=== PATIENT | male | born 1960 | race Caucasian/White ===

== ENCOUNTER 2025-08-10 20:09 | Emergency (ER) | payer MEDICARE ==
[~2025-08-10] VITALS: Ht 165.1 cm; Wt 81.6 kg
[2025-08-10 20:10] VITALS: TEMP 98.5
[2025-08-10] MEDS ORDERED: Vancomycin IV 1 GM in SODIUM CHLORIDE 0.9% 250ML 250 ML IV ONE (20:45)
[2025-08-10 21:13] LABS: BASOPHILS % 0.2 % (0.0-1.0); EOSINOPHILS % 0.1 % (0.0-6.0); LYMPHOCYTES % 2.2 % (18.0-39.1); MONOCYTES % 5.4 % (4.4-11.3); NEUTROPHILS % 90.2 % (38.7-80.0); RED CELL DISTRIBUTION WIDTH 19.9 % (11.7-14.4)
[2025-08-10 21:15] VITALS: PULSE 88; RESP 20
[2025-08-10 21:24] LABS: INR 1.24
[2025-08-10 21:33] LABS: EST GLOMERULAR FILTRATION RATE 51.0 ML/MIN (>=60)
[2025-08-10] MEDS: SODIUM CHLORIDE 0.9% 1000ML 1,000 ML IV ONE (21:45)
[2025-08-10 22:43] VITALS: BP 120/64; O2SAT 99
== END 2025-08-10 22:30 | disposition other institution (70) ==
LOC: ER 21:15
DX: T81.49XA Infection following a procedure, other surgical site, initial encounter (principal); I10 Essential (primary) hypertension; E11.65 Type 2 diabetes mellitus with hyperglycemia; E78.5 Hyperlipidemia, unspecified; Z95.5 Presence of coronary angioplasty implant and graft; F17.210 Nicotine dependence, cigarettes, uncomplicated
CPT/HCPCS: 36415; 80053; 85025; 85610; 85730; 87040; 99284; J2543; J7030; J3373; J7050